=== PATIENT | male | born 1970 | race Caucasian/White ===

== ENCOUNTER 2024-06-20 08:49 | Day surgery (SDC) | payer OTHER ==
[~2024-06-20] VITALS: Ht 170.2 cm; Wt 136.1 kg
[2024-06-20] MEDS ORDERED: fentaNYL citrate 0.05 MG/ML VIAL ONE (11:03)
[2024-06-20] MEDS: fentaNYL citrate 0.05 MG/ML VIAL IVP ONE (11:32)
[2024-06-20] MEDS: LIDOCAINE 2% 100 MG/5 ML UJET TP ONE (11:42)
== END 2024-06-20 12:35 | disposition home or self-care (01) ==
LOC: MDS 08:49 → MMU 08:49 → MDS 12:35
PROVIDERS: ATTEND Internal Medicine Gastroenterology
DX: Z12.11 Encounter for screening for malignant neoplasm of colon (principal); K57.30 Diverticulosis of large intestine without perforation or abscess without bleeding; K21.9 Gastro-esophageal reflux disease without esophagitis; E11.9 Type 2 diabetes mellitus without complications
CPT/HCPCS: 45378; 82948; J3010